=== PATIENT | female | born 1975 | race Caucasian/White ===

== ENCOUNTER → 2022-09-01 09:29 | Outpatient (CLI) | payer BC, SELFPAY ==
--- NOTE | ~2022-09-01 | MR_ITS ---
EXAMINATION: MR cervical spine wo con DATE: 09/01/2022 10:37 INDICATION: Cervical radicular pain. Neck pain radiating to the right shoulder and arm. TECHNIQUE: Magnetic resonance imaging (MRI) of the cervical spine was performed without intravenous c ontrast. Sequences included sagittal T2-weighted FSE, sagittal T2-weighted FS FSE, sagittal T1-weight ed FSE, axial MERGE, and axial T2-weighted FSE. COMPARISON: Cervical spine MRI 03/11/2019 FINDINGS: There is 9 degrees dextrocurvature of cervical spine. There is kyphosis of cervical spine. Vertebral body heights are normal. There is moderately decreased disc height at C5-C6 and mildly decr eased disc height at C6-C7. The spinal cord signal intensity is normal. The following disc levels are specifically discussed: C2-C3: The disc does not extend beyond the endplate margin. There is no uncovertebral joint osteoarth ritis. There is mild bilateral facet joint osteoarthritis. There is no neural foraminal stenosis. The re is no central canal stenosis. C3-C4: There is a central extrusion. There is no uncovertebral joint osteoarthritis. There is mild ri ght and severe left facet joint osteoarthritis. There is no neural foraminal stenosis. There is mild central canal stenosis. C4-C5: The disc does not extend beyond the endplate margin. There is no uncovertebral joint osteoarth ritis. There is no facet joint osteoarthritis. There is no neural foraminal stenosis. There is no jaime tral canal stenosis. C5-C6: The disc is bulging. There is severe bilateral uncovertebral joint osteoarthritis. There is mi ld bilateral facet joint osteoarthritis. There is moderate right and mild left neural foraminal steno sis. There is mild central canal stenosis with ventral indentation of the spinal cord. C6-C7: The disc is bulging. There is mild right and severe left uncovertebral joint osteoarthritis. T here is no facet joint osteoarthritis. There is mild left neural foraminal stenosis. There is mild ce ntral canal stenosis. C7-T1: The disc does not extend beyond the endplate margin. There is no uncovertebral joint osteoarth ritis. There is mild right and moderate left facet joint osteoarthritis. There is mild left neural fo raminal stenosis. There is no central canal stenosis. IMPRESSION: 1. Moderate cervical spondylosis, stable from 03/11/2019. Reviewed, dictated and finalized at location A.
== END ==
PROVIDERS: PCP Nurse Practitioner Family; Visit Provider Nurse Practitioner Family
DX: M47.22 Other spondylosis with radiculopathy, cervical region (principal)
CPT/HCPCS: 72141

== ENCOUNTER 2023-02-15 01:17 | Day surgery (SDC) | payer BC, SELFPAY ==
[2023-02-04 11:36] VITALS: BMI 30.2
--- NOTE | 2023-02-14 13:07 | WPDANESEPPF ---
Anes - Initial Pre Proc Eval Procedure: Operation Date: 02/15/23 09:00 Proposed Procedures p Screening Colonoscopy - Paco Thorne MD Date/Time: 02/14/23 13:07 Surgeon: Paco Thorne MD Pre Op Diagnosis: neoplasm screening Patient Data Age: 47 Gender: F Height: 1.63 m Weight: 80 kg Allergies Allergy/AdvReac Type Severity Reaction Status Date / Time hydrocodone Allergy Intermediate Itching Verified 02/15/23 07:58 erythromycin base AdvReac Unknown NAUSEA/VOMI Verified 02/15/23 07:58 TING Home Medications Medication Instructions Recorded Confirmed Type Tumeric 1 cap PO DAILY 03/17/19 02/15/23 History alprazolam 0.5 mg tablet 0.5 mg PO Q8H PRN Anxiety 03/17/19 02/15/23 History atorvastatin 10 mg tablet 10 mg PO DAILY 03/17/19 02/15/23 History cetirizine 10 mg tablet (Zyrtec) 10 mg PO DAILY 03/17/19 02/15/23 History jennifer (Zingiber officinalis) 250 250 mg PO DAILY 03/17/19 02/15/23 History mg capsule glucosamine sulfate 500 mg tablet 500 mg PO DAILY 03/17/19 02/15/23 History (Glucosamine) magnesium 250 mg tablet 250 mg PO DAILY 03/17/19 02/15/23 History multivitamin 1 tablet PO DAILY 03/17/19 02/15/23 History omeprazole 40 mg capsule,delayed 40 mg PO DAILY 03/17/19 02/15/23 History release triamcinolone acetonide 0.5 % 1 applic topical DAILY PRN vulvar 12/11/21 02/15/23 Rx topical ointment itching #15 grams celecoxib 100 mg capsule 100 mg PO BID 01/31/23 02/15/23 History cyclobenzaprine 5 mg tablet 5 mg PO TID PRN Pain 01/31/23 02/15/23 History estradiol 0.5 mg tablet 0.5 mg PO DAILY #90 tabs 01/31/23 02/15/23 Rx semaglutide (weight loss) 2.4 2.4 mg subcut WEEKLY 01/31/23 02/15/23 History mg/0.75 mL subcutaneous pen injector (Weaniketvy) diphenhydramine HCl 25 mg capsule 25 mg PO HS PRN Sleep 02/04/23 02/15/23 History (Benadryl) fluticasone propionate 50 1 spray intranasal DAILY 02/04/23 02/15/23 History mcg/actuation nasal spray,suspension (Flonase Allergy Relief) melatonin 5 mg tablet 5 mg PO HS PRN Sleep 02/04/23 02/15/23 History omeprazole 20 mg capsule,delayed 20 mg PO DAILY 02/04/23 02/15/23 History release polyethylene glycol 3350 17 gram 17 g PO DAILY PRN Constipation 02/04/23 02/15/23 History oral powder packet (Miralax) psyllium husk 0.4 gram capsule 0.4 g PO DAILY PRN Constipation 02/04/23 02/15/23 History (Metamucil) Patient hx anesthesia problems: none Family hx anesthesia problems: none Results Review: All pre-operative results and documents have been reviewed as part of the pre-operative evaluation. 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 HANNAH I & II Family History Family History Grandparent Family history of pancreatic cancer Mother Family history of malignant neoplasm of breast Other Family history of cardiovascular disease Social History Social History (Updated 01/31/23 @ 14:44 by Barbara Bartholomew MA) Smoking packs per day: 1 Smoking cigarettes per day: 20.0 Years smoked: 15 Smoking pack-years: 15.00 Smoking status: Current every day smoker Tobacco type: cigarettes Alcohol intake: current Substance use: never Substance use type: does not use Lack of Transportation: No Lack of Food: Never True Current Housing: I Have Housing Concerned About Future Housing: No Difficulty Paying Gas/Elect
--- NOTE | 2023-02-14 15:14 | WPDGICN ---
Assessment and Plan Assessment and plan (1) Colon cancer screening: Code(s): Z12.11 - Encounter for screening for malignant neoplasm of colon Status: Acute Assessment and Plan: Colonoscopy with possible biopsy or polypectomy or cautery or injection of substances. GI Consult Note Consult date/time: 02/14/23 15:14 HPI: Lynsey Peraza is a 47 year old female who is referred for colon cancer screening. 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 HANNAH I & II Family History Family History Grandparent Family history of pancreatic cancer Mother Family history of malignant neoplasm of breast Other Family history of cardiovascular disease Social History Social History Smoking packs per day: 1 Smoking cigarettes per day: 20.0 Years smoked: 15 Smoking pack-years: 15.00 Smoking status: Current every day smoker Tobacco type: cigarettes Alcohol intake: current Substance use: never Substance use type: does not use Lack of Transportation: No Lack of Food: Never True Current Housing: I Have Housing Concerned About Future Housing: No Difficulty Paying Gas/Electric Bills: No Difficulty Paying for Meds: Decline to Answer Currently Unemployed: Decline to Answer Education: Decline to Answer Difficulty w/ Childcare or Family Care: Decline to Answer Living arrangements: with family Occupation/Education: occupation Gender identity (if verbalized by the patient): Female Sexual Orientation (if Verbalized by the Patient): Straight or Heterosexual Spiritual care concerns: No Meds Home Medications and Allergies Home Medications Medication Instructions Recorded Confirmed Type Tumeric 1 cap PO DAILY 03/17/19 02/15/23 History alprazolam 0.5 mg tablet 0.5 mg PO Q8H PRN Anxiety 03/17/19 02/15/23 History atorvastatin 10 mg tablet 10 mg PO DAILY 03/17/19 02/15/23 History cetirizine 10 mg tablet (Zyrtec) 10 mg PO DAILY 03/17/19 02/15/23 History jennifer (Zingiber officinalis) 250 250 mg PO DAILY 03/17/19 02/15/23 History mg capsule glucosamine sulfate 500 mg tablet 500 mg PO DAILY 03/17/19 02/15/23 History (Glucosamine) magnesium 250 mg tablet 250 mg PO DAILY 03/17/19 02/15/23 History multivitamin 1 tablet PO DAILY 03/17/19 02/15/23 History omeprazole 40 mg capsule,delayed 40 mg PO DAILY 03/17/19 02/15/23 History release triamcinolone acetonide 0.5 % 1 applic topical DAILY PRN vulvar 12/11/21 02/15/23 Rx topical ointment itching #15 grams celecoxib 100 mg capsule 100 mg PO BID 01/31/23 02/15/23 History cyclobenzaprine 5 mg tablet 5 mg PO TID PRN Pain 01/31/23 02/15/23 History estradiol 0.5 mg tablet 0.5 mg PO DAILY #90 tabs 01/31/23 02/15/23 Rx semaglutide (weight loss) 2.4 2.4 mg subcut WEEKLY 01/31/23 02/15/23 History mg/0.75 mL subcutaneous pen injector (Weaniketvy) diphenhydramine HCl 25 mg capsule 25 mg PO HS PRN Sleep 02/04/23 02/15/23 History (Benadryl) fluticasone propionate 50 1 spray intranasal DAILY 02/04/23 02/15/23 History mcg/actuation nasal spray,suspension (Flonase Allergy Relief) melatonin 5 mg tablet 5 mg PO HS PRN Sleep 02/04/23 02/15/23 History omep
[2023-02-15 08:02] VITALS: BP 100/82; PULSE 73; RESP 18; TEMP 36.3; O2SAT 100; BMI 29.8
[2023-02-15] MEDS: LACTATED RINGERS 1,000 ML 150 ML IV CONT (08:12)
[2023-02-15 09:05] VITALS: BP 96/58; PULSE 76; RESP 19; O2SAT 98
[2023-02-15 09:15] VITALS: BP 92/43; PULSE 70; RESP 27; O2SAT 99
[2023-02-15 09:25] VITALS: BP 105/83; PULSE 65; RESP 17; O2SAT 100
== END 2023-02-15 09:35 | disposition home or self-care (01) ==
PROVIDERS: PCP Nurse Practitioner Family; Visit Provider Internal Medicine Gastroenterology
PROC: 0DJD8ZZ Inspection of Lower Intestinal Tract, Via Natural or Artificial Opening Endoscopic (ICD-10-PCS; CPT 45378; principal; 2023-02-15 09:00)
DX: Z12.11 Encounter for screening for malignant neoplasm of colon (principal); K57.30 Diverticulosis of large intestine without perforation or abscess without bleeding; K64.8 Other hemorrhoids; E78.5 Hyperlipidemia, unspecified; K21.9 Gastro-esophageal reflux disease without esophagitis; F41.9 Anxiety disorder, unspecified; F17.210 Nicotine dependence, cigarettes, uncomplicated; Z79.85 Long-term (current) use of injectable non-insulin antidiabetic drugs; E66.9 Obesity, unspecified; Z68.29 Body mass index [BMI] 29.0-29.9, adult
CPT/HCPCS: 45378; J2704; J7120

== ENCOUNTER → 2023-03-21 15:23 | Outpatient (CLI) | payer BC, SELFPAY ==
--- NOTE | ~2023-03-21 | US_ITS ---
EXAMINATION: US pelvic complete w TV DATE: 03/21/2023 15:57 INDICATION: Pelvic pain Comparison:No prior studies for comparison. TECHNIQUE: Multiple transabdominal and endovaginal sonographic images of the pelvis performed. FINDINGS: The uterus is surgically absent. The ovaries are not visualized. There is no free fluid in the pelvis. There are no abnormal masses seen on either side. IMPRESSION: 1. Unremarkable pelvic ultrasound. Reviewed, dictated and finalized at location L. [employer]
== END ==
PROVIDERS: PCP Obstetrics & Gynecology; Visit Provider Obstetrics & Gynecology
DX: R10.2 Pelvic and perineal pain (principal)
CPT/HCPCS: 76830; 76856

== ENCOUNTER 2023-07-22 12:29 | Emergency (ER) | payer OTHER, SELFPAY ==
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
[2023-07-22 12:33] VITALS: BP 124/90; PULSE 100; RESP 18; TEMP 37.1; O2SAT 100
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
[2023-07-22 14:55] VITALS: BP 122/92; PULSE 98; RESP 16; O2SAT 100
[2023-07-22 15:55] VITALS: BP 110/74; PULSE 75; RESP 14; TEMP 36.4; O2SAT 100
== END 2023-07-22 15:57 | disposition home or self-care (01) ==
LOC: ANHED 15:51
PROVIDERS: Emergency Provider Nurse Practitioner Family; PCP Obstetrics & Gynecology
DX: S39.012A Strain of muscle, fascia and tendon of lower back, initial encounter (principal); S16.1XXA Strain of muscle, fascia and tendon at neck level, initial encounter; M47.812 Spondylosis without myelopathy or radiculopathy, cervical region; M47.816 Spondylosis without myelopathy or radiculopathy, lumbar region; R51.9 Headache, unspecified; E78.5 Hyperlipidemia, unspecified; K21.9 Gastro-esophageal reflux disease without esophagitis; F17.210 Nicotine dependence, cigarettes, uncomplicated; F41.9 Anxiety disorder, unspecified; Z90.710 Acquired absence of both cervix and uterus; Z79.85 Long-term (current) use of injectable non-insulin antidiabetic drugs; V43.52XA Car driver injured in collision with other type car in traffic accident, initial encounter
CPT/HCPCS: 70450; 72125; 72131; 99284